=== PATIENT | male | born 1950 | race Caucasian/White ===

== ENCOUNTER → 2024-09-23 14:23 | Outpatient (REF) | payer BC, SELFPAY | LOC: RCS 14:23 | PROVIDERS: ATTENDING PHYSICIAN Internal Medicine Cardiovascular Disease; FAMILY PHYSICIAN Family Medicine | DX: Z95.5 Presence of coronary angioplasty implant and graft (principal); E78.2 Mixed hyperlipidemia; Z95.2 Presence of prosthetic heart valve | CPT/HCPCS: 93306 ==